=== PATIENT | male | born 1990 | race Caucasian/White ===

== ENCOUNTER 2017-07-02 23:14 | Emergency (ER) | payer MEDICAID ==
[~2017-07-02] VITALS: Ht 170.2 cm; Wt 65.1 kg
[2017-07-02 23:21] VITALS: BP 121/82
== END 2017-07-03 00:57 | disposition home or self-care (01) ==
LOC: ED 07-03 00:42
DX: J18.1 Lobar pneumonia, unspecified organism (principal)
CPT/HCPCS: 71020; 99284

== ENCOUNTER 2019-10-23 01:35 | Emergency (ER) | payer MEDICAID ==
[~2019-10-23] VITALS: Ht 170.2 cm; Wt 59.0 kg
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
--- NOTE | 2019-10-23 01:40 | NUR ---
C-COLLAR IN PLACE, APPLIED BY [facility]
--- NOTE | 2019-10-23 01:50 | NUR ---
PATIENT TO CT
[2019-10-23] MEDS ORDERED: ONDANSETRON ODT 4 MG ONE (01:56)
[2019-10-23] MEDS ORDERED: OXYcodone/APAP 5/325MG TABLET ONE (01:57)
[2019-10-23] MEDS ORDERED: IBUPROFEN 600 MG TABLET ONE (01:58)
[2019-10-23] MEDS ORDERED: ONDANSETRON ODT 4 MG PO ONE (02:00)
[2019-10-23] MEDS ORDERED: IBUPROFEN 600 MG TABLET PO ONE (02:00)
[2019-10-23] MEDS ORDERED: OXYcodone/APAP 5/325MG TABLET PO ONE (02:00)
--- NOTE | 2019-10-23 02:04 | NUR ---
PATIENT AND STATES THEY CALLED [facility] AND ALREADY FILED REPORT AND PLAN ON GETTING RESTRIANING ORDER
--- NOTE | 2019-10-23 02:16 | NUR ---
PATIENT MEDICATED PER [facility], TOLERATED WELL. CALL LIGHT IN REACH, DENIES NEEDS AT THIS TIME.
[2019-10-23 02:49] VITALS: BP 113/84
== END 2019-10-23 03:25 | disposition home or self-care (01) ==
LOC: ED 03:10
DX: S06.0X1A Concussion with loss of consciousness of 30 minutes or less, initial encounter (principal); S16.1XXA Strain of muscle, fascia and tendon at neck level, initial encounter; S09.90XA Unspecified injury of head, initial encounter; F17.200 Nicotine dependence, unspecified, uncomplicated; Y04.8XXA Assault by other bodily force, initial encounter; Y93.89 Activity, other specified; Y92.009 Unspecified place in unspecified non-institutional (private) residence as the place of occurrence of the external cause; Y99.8 Other external cause status
CPT/HCPCS: 70450; 72125; 99284; Q0162

== ENCOUNTER 2020-03-06 19:16 | Emergency (ER) | payer MEDICAID ==
[~2020-03-06] VITALS: Ht 170.2 cm; Wt 63.7 kg
[2020-03-06] MEDS ORDERED: ONDANSETRON 2MG/ML, 2ML ONE (20:11)
[2020-03-06] MEDS ORDERED: MAALOX/HYOSCYAMINE/LIDOCAINE 45 ML BTL ONE (20:11)
[2020-03-06] MEDS ORDERED: FAMOTIDINE 20 MG/2 ML ONE (20:11)
[2020-03-06 20:19] VITALS: BP 120/81
[2020-03-06 20:27] LABS: BASOPHILS # (AUTO) 0.04 x10^3/uL (0-0.1); BASOPHILS % (AUTO) 0 % (0-1); EOSINOPHILS # (AUTO) 0.03 x10^3/uL (0-0.4); EOSINOPHILS % (AUTO) 0 % (1-7); LYMPHOCYTES # (AUTO) 1.34 x10^3/uL (1-3.4); LYMPHOCYTES % (AUTO) 13 % (22-44); MD NO; MEAN CORPUSCULAR HEMOGLOBIN 31.6 pg (27.5-34.5); MONOCYTES # (AUTO) 0.58 x10^3/uL (0.2-0.8); MONOCYTES % (AUTO) 6 % (2-9); NEUTROPHILS # (AUTO) 8.01 x10^3/uL (1.8-6.8); NEUTROPHILS % (AUTO) 80 % (42-75); PLATELET COUNT 202 x10^3/uL (130-400); RED BLOOD COUNT 5.15 x10^6/uL (4.38-5.82); RED CELL DISTRIBUTION WIDTH 13.9 % (9.4-14.8)
[2020-03-06] MEDS ORDERED: ONDANSETRON 2MG/ML, 2ML IVPush ONE (20:30)
[2020-03-06] MEDS ORDERED: MAALOX/HYOSCYAMINE/LIDOCAINE 45 ML BTL PO ONE (20:30)
[2020-03-06] MEDS ORDERED: FAMOTIDINE 20 MG/2 ML IV ONE (20:30)
[2020-03-06] MEDS ORDERED: SODIUM CHLORIDE 0.9% 1,000ML IVBOLUS ONE (20:30)
[2020-03-06] MEDS ORDERED: SODIUM CHLORIDE FLUSH 10ML SYR IVF ONE (20:30)
[2020-03-06 20:32] LABS: ALANINE AMINOTRANSFERASE 22 U/L (12-78); ALBUMIN 4.4 g/dL (3.4-5.0); ANION GAP 5 mmol/L (5-15); CALCIUM 9.2 mg/dL (8.5-10.1); CHLORIDE 107 mmol/L (98-107); CREATININE 1.11 mg/dL (0.7-1.3)
[2020-03-06 20:34] LABS: ALKALINE PHOSPHATASE 88 U/L (45-117); TOTAL PROTEIN 8.2 g/dL (6.4-8.2)
--- NOTE | 2020-03-06 20:54 | NUR ---
PT REPORTS HE FEELS "A LITTLE BIT BETTER" PT PASSED PO CHALLENGE. TBDC
--- NOTE | 2020-03-06 21:06 | NUR ---
PT WITH NO EPISODES OF VOMITTING IN THE ED
== END 2020-03-06 21:08 | disposition home or self-care (01) ==
LOC: ED 19:33
DX: R11.2 Nausea with vomiting, unspecified (principal); R10.84 Generalized abdominal pain; I51.7 Cardiomegaly
CPT/HCPCS: 36415; 74021; 80053; 83690; 85025; 93005; 96374; 96375; 99285; J2405; J3490; J7030

== ENCOUNTER 2020-04-13 01:06 | Emergency (ER) | payer MEDICAID ==
[~2020-04-13] VITALS: Ht 170.2 cm; Wt 60.7 kg
--- NOTE | 2020-04-13 06:19 | NUR ---
PT TO ROOM FROM LOBBY
[2020-04-13] MEDS ORDERED: DIPHENHYDRAMINE 50 MG/ML, 1ML ONE (06:42)
[2020-04-13] MEDS ORDERED: METOCLOPRAMIDE 5 MG/ML, 2ML ONE (06:42)
[2020-04-13] MEDS ORDERED: KETOROLAC 30 MG/1 ML ONE (06:43)
--- NOTE | 2020-04-13 06:54 | NUR ---
PT WITH URIBE, NAUSEA AND SOME VOMITTING X 1 DAY. PIV PLACED, PT MEDICATED AND IVF INITIATED. ATTACHED TO BP AND SPO2 MONITORS.
[2020-04-13] MEDS ORDERED: KETOROLAC 30 MG/1 ML IVPush ONE (07:00)
[2020-04-13] MEDS ORDERED: SODIUM CHLORIDE 0.9% 1,000ML IVBOLUS ONE (07:00)
[2020-04-13] MEDS ORDERED: DIPHENHYDRAMINE 50 MG/ML, 1ML IVPush ONE (07:00)
[2020-04-13] MEDS ORDERED: METOCLOPRAMIDE 5 MG/ML, 2ML IVPush ONE (07:00)
--- NOTE | 2020-04-13 08:26 | NUR ---
TASK RN. PT OK FOR D/C PER E MD. PT VERBALIZED UNDERSTANDING OF D/C INSTRUCTIONS. HAS STEADY GAIT UPON D/C. PT HAS ALL OWN BELONGINGS UPON D/C.
[2020-04-13 08:27] VITALS: BP 100/65
== END 2020-04-13 08:28 | disposition home or self-care (01) ==
LOC: ED 06:21
DX: G44.219 Episodic tension-type headache, not intractable (principal); Z59.0 Homelessness
CPT/HCPCS: 96374; 96375; 99284; J1200; J1885; J2765; J7030

== ENCOUNTER 2020-04-18 19:55 | Emergency (ER) | payer MEDICAID ==
[~2020-04-18] VITALS: Ht 170.2 cm; Wt 61.9 kg
[2020-04-18] MEDS ORDERED: ONDANSETRON ODT 4 MG ONE (20:19)
[2020-04-18] MEDS ORDERED: ONDANSETRON ODT 4 MG PO ONE (20:30)
[2020-04-18 20:37] LABS: BASOPHILS # (AUTO) 0.03 x10^3/uL (0-0.1); BASOPHILS % (AUTO) 1 % (0-1); EOSINOPHILS # (AUTO) 0.09 x10^3/uL (0-0.4); EOSINOPHILS % (AUTO) 2 % (1-7); LYMPHOCYTES # (AUTO) 1.48 x10^3/uL (1-3.4); LYMPHOCYTES % (AUTO) 28 % (22-44); MD NO; MEAN CORPUSCULAR HEMOGLOBIN 31.6 pg (27.5-34.5); MEAN CORPUSCULAR HGB CONC 33.5 g/dL (33.2-36.2); MEAN CORPUSCULAR VOLUME 94.5 fL (81-97); MEAN PLATELET VOLUME 8.5 fL (7.4-10.4); MONOCYTES # (AUTO) 0.27 x10^3/uL (0.2-0.8); MONOCYTES % (AUTO) 5 % (2-9); NEUTROPHILS # (AUTO) 3.53 x10^3/uL (1.8-6.8); NEUTROPHILS % (AUTO) 65 % (42-75); PLATELET COUNT 201 x10^3/uL (130-400); RED BLOOD COUNT 4.48 x10^6/uL (4.38-5.82); RED CELL DISTRIBUTION WIDTH 13.3 % (9.4-14.8)
[2020-04-18 20:49] LABS: CALCIUM 8.4 mg/dL (8.5-10.1); CHLORIDE 109 mmol/L (98-107)
[2020-04-18 21:02] LABS: ANION GAP 5 mmol/L (5-15)
--- NOTE | 2020-04-18 21:09 | NUR ---
REPORT RECEIVED FROM KAREN ELISE. PATIENT UP FOR RECHECK AT THIS TIME
[2020-04-18 21:18] VITALS: BP 108/63
== END 2020-04-18 21:32 | disposition home or self-care (01) ==
LOC: ED 21:15
DX: R11.2 Nausea with vomiting, unspecified (principal); R53.83 Other fatigue; R10.9 Unspecified abdominal pain; F17.200 Nicotine dependence, unspecified, uncomplicated
CPT/HCPCS: 36415; 80048; 85025; 99283; Q0162

== ENCOUNTER 2020-04-21 23:17 | Emergency (ER) | payer MEDICAID ==
[~2020-04-21] VITALS: Ht 170.2 cm; Wt 63.5 kg
--- NOTE | 2020-04-21 23:29 | NUR ---
triage note: EKG done in triage
[2020-04-21] MEDS ORDERED: ONDANSETRON ODT 8 MG ONE (23:55)
[2020-04-21] MEDS ORDERED: ACETAMINOPHEN 500 MG TABLET ONE (23:55)
[2020-04-22] MEDS ORDERED: ACETAMINOPHEN 500 MG TABLET PO ONE
[2020-04-22] MEDS ORDERED: ONDANSETRON ODT 8 MG PO ONE
[2020-04-22 00:47] VITALS: BP 110/72
== END 2020-04-22 00:49 ==
LOC: ED 04-22 00:01
DX: R11.2 Nausea with vomiting, unspecified (principal); I51.7 Cardiomegaly; R94.31 Abnormal electrocardiogram [ECG] [EKG]; R42 Dizziness and giddiness; R51 Headache
CPT/HCPCS: 93005; 99283; Q0162

== ENCOUNTER 2020-05-08 17:17 | Emergency (ER) | payer MEDICAID ==
[~2020-05-08] VITALS: Ht 170.2 cm; Wt 58.8 kg
--- NOTE | 2020-05-08 19:10 | NUR ---
PT ADMITTED TO THOUGHTS OF WANTING TO END HIS LIFE OVER THE PAST COUPLE DAYS. ERP AWARE. PER ERP, OKAY TO DISCHARGE PT WITH REFERRALS FOR MENTAL HEALTH/COMMUNITY RESOURCES. REPORTED TO BRANDYN JONES.
--- NOTE | 2020-05-08 19:16 | NUR ---
report of pt from nick castellanos and assumign care of pt at this time.
--- NOTE | 2020-05-08 19:50 | NUR ---
PT D/C WITH D/C SUMMARY AND SCRIPTS. PT PROVIDED A LIST OF BEHAVIORAL HEALTH RESOURCES PER PT REQUEST. PT DENIES ANY OTHER NEEDS PERTAINING TO THIS VISIT AND AMBULATES TO REGISTRATION DESK WITH STEADY GAIT FOR D/C HOME.
[2020-05-08 19:51] VITALS: BP 118/71
== END 2020-05-08 19:53 | disposition home or self-care (01) ==
LOC: ED 19:32
DX: R10.84 Generalized abdominal pain (principal); R11.2 Nausea with vomiting, unspecified; R05 Cough; R06.02 Shortness of breath; R07.89 Other chest pain
CPT/HCPCS: 71045; 99283

== ENCOUNTER 2020-05-09 20:23 | Emergency (ER) | payer MEDICAID ==
[~2020-05-09] VITALS: Ht 170.2 cm; Wt 59.8 kg
[2020-05-09 20:29] VITALS: BP 117/78
== END 2020-05-09 22:11 | disposition left against medical advice (07) ==
LOC: ED 21:43
DX: R68.89 Other general symptoms and signs (principal); Z53.21 Procedure and treatment not carried out due to patient leaving prior to being seen by health care provider

== ENCOUNTER 2020-05-16 12:51 | Emergency (ER) | payer MEDICAID ==
[~2020-05-16] VITALS: Ht 170.2 cm; Wt 56.1 kg
--- NOTE | 2020-05-16 13:25 | NUR ---
Lab at bedside
[2020-05-16 13:32] LABS: BASOPHILS # (AUTO) 0.05 x10^3/uL (0-0.1); BASOPHILS % (AUTO) 1 % (0-1); EOSINOPHILS # (AUTO) 0.15 x10^3/uL (0-0.4); EOSINOPHILS % (AUTO) 2 % (1-7); LYMPHOCYTES # (AUTO) 2.34 x10^3/uL (1-3.4); LYMPHOCYTES % (AUTO) 36 % (22-44); MD NO; MEAN CORPUSCULAR HEMOGLOBIN 31.6 pg (27.5-34.5); MEAN CORPUSCULAR VOLUME 95.9 fL (81-97); MEAN PLATELET VOLUME 8.8 fL (7.4-10.4); MONOCYTES # (AUTO) 0.77 x10^3/uL (0.2-0.8); MONOCYTES % (AUTO) 12 % (2-9); NEUTROPHILS # (AUTO) 3.25 x10^3/uL (1.8-6.8); NEUTROPHILS % (AUTO) 50 % (42-75); PLATELET COUNT 189 x10^3/uL (130-400); RED BLOOD COUNT 5.15 x10^6/uL (4.38-5.82); RED CELL DISTRIBUTION WIDTH 13.4 % (9.4-14.8)
[2020-05-16 13:45] LABS: ALANINE AMINOTRANSFERASE 18 U/L (12-78); ALBUMIN 4.1 g/dL (3.4-5.0); ANION GAP 7 mmol/L (5-15); CALCIUM 9.1 mg/dL (8.5-10.1); CHLORIDE 105 mmol/L (98-107); CREATININE 1.17 mg/dL (0.7-1.3)
[2020-05-16 13:50] LABS: ALKALINE PHOSPHATASE 78 U/L (45-117); BILIRUBIN,TOTAL 1.9 mg/dL (0.2-1.0); TROPONIN I < 0.015 ng/mL (0.000-0.045)
[2020-05-16 15:20] VITALS: BP 98/71
--- NOTE | 2020-05-16 15:40 | NUR ---
WITH REASSESSMENT PATIENT REPORTS CONTINUED PALPITATIONS VSS ON PATHOLOGY LAB TECHNICIAN PROVIDED WITH PO FLUIDS/SOLIDS
[2020-05-16 16:15] LABS: AMPHETAMINE SCREEN, URINE Positive (Negative); BARBITURATE SCREEN, URINE Negative (Negative); BENZODIAZEPINE SCREEN, URINE Negative (Negative); CANNABINOID SCREEN, URINE Negative (Negative); COCAINE SCREEN, URINE Negative (Negative); METHADONE SCREEN, URINE Negative (Negative); OPIATE SCREEN, URINE Negative (Negative)
--- NOTE | 2020-05-16 16:40 | NUR ---
PLACED UP FOR RECHECK ALL TESTING RESULTED PATIENT NOW DENIES ANY SXS
== END 2020-05-16 18:40 | disposition home or self-care (01) ==
LOC: ED 13:25
DX: F15.10 Other stimulant abuse, uncomplicated (principal); R00.2 Palpitations; R07.89 Other chest pain; I51.7 Cardiomegaly; F17.200 Nicotine dependence, unspecified, uncomplicated
CPT/HCPCS: 36415; 80053; 80307; 84443; 84484; 85025; 93005; 99284

== ENCOUNTER 2020-05-23 14:34 | Emergency (ER) | payer MEDICAID ==
[~2020-05-23] VITALS: Ht 170.2 cm; Wt 61.0 kg
--- NOTE | 2020-05-23 15:52 | NUR ---
SURVEILLANCE INVESTIGATOR: PT WALKED BACK FROM LOBBY TO ROOM AT THIS TIME. NO ACUTE DISTRESS NOTED AT THIS TIME.
--- NOTE | 2020-05-23 16:08 | NUR ---
Assumed care of patient. C/O N/V x 5. NAD. Provided with blanket. No other needs at this time.
[2020-05-23 16:59] LABS: BASOPHILS # (AUTO) 0.02 x10^3/uL (0-0.1); BASOPHILS % (AUTO) 0 % (0-1); EOSINOPHILS # (AUTO) 0.13 x10^3/uL (0-0.4); EOSINOPHILS % (AUTO) 2 % (1-7); LYMPHOCYTES # (AUTO) 1.69 x10^3/uL (1-3.4); LYMPHOCYTES % (AUTO) 26 % (22-44); MD NO; MEAN CORPUSCULAR HEMOGLOBIN 31.6 pg (27.5-34.5); MEAN CORPUSCULAR HGB CONC 33.4 g/dL (33.2-36.2); MEAN CORPUSCULAR VOLUME 94.7 fL (81-97); MEAN PLATELET VOLUME 8.8 fL (7.4-10.4); MONOCYTES # (AUTO) 0.45 x10^3/uL (0.2-0.8); MONOCYTES % (AUTO) 7 % (2-9); NEUTROPHILS # (AUTO) 4.14 x10^3/uL (1.8-6.8); NEUTROPHILS % (AUTO) 64 % (42-75); PLATELET COUNT 176 x10^3/uL (130-400); RED BLOOD COUNT 4.48 x10^6/uL (4.38-5.82); RED CELL DISTRIBUTION WIDTH 13.5 % (9.4-14.8)
[2020-05-23] MEDS ORDERED: SODIUM CHLORIDE 0.9% 1,000ML IVBOLUS ONE (17:00)
[2020-05-23] MEDS ORDERED: ONDANSETRON 2MG/ML, 2ML IVPush ONE (17:00)
[2020-05-23 17:09] LABS: ALANINE AMINOTRANSFERASE 20 U/L (12-78); ALBUMIN 3.6 g/dL (3.4-5.0); CALCIUM 8.6 mg/dL (8.5-10.1); CHLORIDE 111 mmol/L (98-107); CREATININE 1.05 mg/dL (0.7-1.3)
[2020-05-23 17:14] LABS: ALKALINE PHOSPHATASE 59 U/L (45-117); ANION GAP 3 mmol/L (5-15); BILIRUBIN,TOTAL 0.3 mg/dL (0.2-1.0); TOTAL PROTEIN 6.7 g/dL (6.4-8.2)
[2020-05-23] MEDS ORDERED: ONDANSETRON 2MG/ML, 2ML ONE (17:16)
--- NOTE | 2020-05-23 17:17 | NUR ---
IV started, zofran admin, and NS hung. Will continue to monitor.
[2020-05-23 18:02] VITALS: BP 104/61
--- NOTE | 2020-05-23 18:20 | NUR ---
Patient/Caregiver given discharge instructions and they have confirmed that they understand the instructions. Patient ambulatory with steady gait.
== END 2020-05-23 18:21 | disposition home or self-care (01) ==
LOC: ED 18:15
DX: K29.00 Acute gastritis without bleeding (principal); K85.00 Idiopathic acute pancreatitis without necrosis or infection; R11.2 Nausea with vomiting, unspecified
CPT/HCPCS: 36415; 80053; 83690; 85025; 96361; 96374; 99283; J2405; J7030

== ENCOUNTER 2020-05-25 08:57 | Emergency (ER) | payer MEDICAID ==
[~2020-05-25] VITALS: Ht 170.2 cm; Wt 62.5 kg
--- NOTE | 2020-05-25 09:42 | NUR ---
walked back to room gait steady. as
--- NOTE | 2020-05-25 09:49 | NUR ---
pt here c/o abd pain/n/v here thurs for same got zofran, carafate, pepcid rx, no relief. diffuse abd pain on palp, pt calm, gait steady, watching tv w/ gf, no vomiting noted. also sts had episode of "shaking" last night that is a seizure r/t stress, does not take seizure meds. denies etoh/drug use. call camp in reach. vss. as
[2020-05-25] MEDS ORDERED: SODIUM CHLORIDE 0.9% 1,000ML IVBOLUS ONE (10:00)
[2020-05-25] MEDS ORDERED: ONDANSETRON 2MG/ML, 2ML IVPush ONE (10:00)
[2020-05-25] MEDS ORDERED: FAMOTIDINE 20 MG/2 ML IV ONE (10:00)
[2020-05-25] MEDS ORDERED: ONDANSETRON 2MG/ML, 2ML ONE (10:03)
[2020-05-25] MEDS ORDERED: FAMOTIDINE 20 MG/2 ML ONE (10:03)
--- NOTE | 2020-05-25 10:25 | NUR ---
piv est labs sent meds per dec at bedside. no vomiting noted. as
[2020-05-25 10:29] LABS: BASOPHILS # (AUTO) 0.03 x10^3/uL (0-0.1); BASOPHILS % (AUTO) 1 % (0-1); EOSINOPHILS # (AUTO) 0.11 x10^3/uL (0-0.4); EOSINOPHILS % (AUTO) 2 % (1-7); LYMPHOCYTES # (AUTO) 1.52 x10^3/uL (1-3.4); LYMPHOCYTES % (AUTO) 29 % (22-44); MD NO; MEAN CORPUSCULAR HEMOGLOBIN 31.2 pg (27.5-34.5); MEAN CORPUSCULAR HGB CONC 32.5 g/dL (33.2-36.2); MEAN PLATELET VOLUME 8.8 fL (7.4-10.4); MONOCYTES # (AUTO) 0.46 x10^3/uL (0.2-0.8); MONOCYTES % (AUTO) 9 % (2-9); NEUTROPHILS % (AUTO) 60 % (42-75); PLATELET COUNT 166 x10^3/uL (130-400); RED CELL DISTRIBUTION WIDTH 13.9 % (9.4-14.8)
[2020-05-25 10:38] LABS: ALANINE AMINOTRANSFERASE 24 U/L (12-78); ALBUMIN 3.5 g/dL (3.4-5.0); CALCIUM 8.9 mg/dL (8.5-10.1)
[2020-05-25 10:40] LABS: ALKALINE PHOSPHATASE 55 U/L (45-117); BILIRUBIN,TOTAL 0.4 mg/dL (0.2-1.0); TOTAL PROTEIN 6.2 g/dL (6.4-8.2)
[2020-05-25 10:48] LABS: ANION GAP 5 mmol/L (5-15); CHLORIDE 110 mmol/L (98-107)
--- NOTE | 2020-05-25 10:49 | NUR ---
eating snack and watching tv. recheck. as
[2020-05-25 11:18] VITALS: BP 115/71
== END 2020-05-25 11:21 | disposition home or self-care (01) ==
LOC: ED 09:47
DX: K29.00 Acute gastritis without bleeding (principal); R11.2 Nausea with vomiting, unspecified; K85.90 Acute pancreatitis without necrosis or infection, unspecified; R10.13 Epigastric pain; F17.200 Nicotine dependence, unspecified, uncomplicated
CPT/HCPCS: 36415; 80053; 83690; 85025; 96361; 96374; 96375; 99284; J2405; J3490; J7030

== ENCOUNTER 2020-05-29 14:24 | Emergency (ER) | payer MEDICAID ==
[~2020-05-29] VITALS: Ht 170.2 cm; Wt 63.9 kg
[2020-05-29 14:28] VITALS: BP 142/86
--- NOTE | 2020-05-29 15:30 | NUR ---
NO ANSWER WHEN CALLED FROM THE LOBBY.
--- NOTE | 2020-05-29 15:34 | NUR ---
NO ANSWER WHEN CALLED FROM THE LOBBY (second call)
--- NOTE | 2020-05-29 15:59 | NUR ---
NO ANSWER WHEN CALLED FROM THE LOBBY.
== END 2020-05-29 15:53 | disposition left against medical advice (07) ==
LOC: ED 15:53
DX: R10.84 Generalized abdominal pain (principal); R51 Headache; Z53.21 Procedure and treatment not carried out due to patient leaving prior to being seen by health care provider

== ENCOUNTER 2020-06-24 08:58 | Emergency (ER) | payer MEDICAID ==
[~2020-06-24] VITALS: Ht 170.2 cm; Wt 58.7 kg
[2020-06-24 09:30] LABS: BASOPHILS # (AUTO) 0.03 x10^3/uL (0-0.1); BASOPHILS % (AUTO) 0 % (0-1); EOSINOPHILS # (AUTO) 0.05 x10^3/uL (0-0.4); EOSINOPHILS % (AUTO) 1 % (1-7); LYMPHOCYTES # (AUTO) 1.44 x10^3/uL (1-3.4); LYMPHOCYTES % (AUTO) 19 % (22-44); MD NO; MEAN CORPUSCULAR HEMOGLOBIN 31.6 pg (27.5-34.5); MEAN CORPUSCULAR HGB CONC 33.3 g/dL (33.2-36.2); MEAN CORPUSCULAR VOLUME 94.8 fL (81-97); MONOCYTES # (AUTO) 0.82 x10^3/uL (0.2-0.8); MONOCYTES % (AUTO) 11 % (2-9); NEUTROPHILS # (AUTO) 5.22 x10^3/uL (1.8-6.8); NEUTROPHILS % (AUTO) 69 % (42-75); PLATELET COUNT 209 x10^3/uL (130-400); RED CELL DISTRIBUTION WIDTH 13.9 % (9.4-14.8)
[2020-06-24] MEDS ORDERED: ONDANSETRON 2MG/ML, 2ML ONE (09:30)
[2020-06-24] MEDS ORDERED: SODIUM CHLORIDE 0.9% 1,000ML IVBOLUS ONE (09:30)
[2020-06-24] MEDS ORDERED: ONDANSETRON 2MG/ML, 2ML IVPush ONE (09:30)
[2020-06-24] MEDS ORDERED: MAALOX/HYOSCYAMINE/LIDOCAINE 45 ML BTL ONE (09:30)
[2020-06-24 09:40] LABS: ALANINE AMINOTRANSFERASE 15 U/L (12-78); ALBUMIN 3.5 g/dL (3.4-5.0); ANION GAP 5 mmol/L (5-15); CHLORIDE 109 mmol/L (98-107); CREATININE 0.92 mg/dL (0.7-1.3)
[2020-06-24 09:42] LABS: ALKALINE PHOSPHATASE 75 U/L (45-117); BILIRUBIN,TOTAL 0.7 mg/dL (0.2-1.0); TOTAL PROTEIN 7.2 g/dL (6.4-8.2)
[2020-06-24] MEDS: MAALOX/HYOSCYAMINE/LIDOCAINE 45 ML BTL PO ONE ×2 (10:07→10:12)
[2020-06-24 10:11] VITALS: BP 102/70
== END 2020-06-24 11:01 | disposition home or self-care (01) ==
LOC: ED 09:37
DX: K29.00 Acute gastritis without bleeding (principal); R11.2 Nausea with vomiting, unspecified; F17.210 Nicotine dependence, cigarettes, uncomplicated; R51 Headache; R94.31 Abnormal electrocardiogram [ECG] [EKG]
CPT/HCPCS: 36415; 80053; 83690; 85025; 93005; 96361; 96374; 99284; J2405; J7030

== ENCOUNTER 2020-07-09 07:15 | Emergency (ER) | payer MEDICAID ==
[~2020-07-09] VITALS: Ht 170.2 cm; Wt 65.9 kg
--- NOTE | 2020-07-09 07:25 | NUR ---
BIB [facility], PT WITH C/O "NOT FEELING WELL" NOT ABLE TO ELABORATE ON SYMPTOMS, STATES HE MAY HAVE HAD A PANIC ATTACK, NOT SURE, STATES LIVING SITUATION IS "NOT EASY" DENIES HI/SI. BG 70. PT DENIES PAIN, SOB, COUGH, ANY SICK CONTACTS. PER EMS PT STATES FOR THEM HE "JUST DIDNT WANT TO BE HOME" PT TO BP, CONT PULSE OX
[2020-07-09 07:56] LABS: BASOPHILS # (AUTO) 0.02 x10^3/uL (0-0.1); BASOPHILS % (AUTO) 0 % (0-1); EOSINOPHILS # (AUTO) 0.09 x10^3/uL (0-0.4); EOSINOPHILS % (AUTO) 1 % (1-7); LYMPHOCYTES # (AUTO) 1.97 x10^3/uL (1-3.4); LYMPHOCYTES % (AUTO) 29 % (22-44); MD NO; MEAN CORPUSCULAR HEMOGLOBIN 31.6 pg (27.5-34.5); MEAN CORPUSCULAR VOLUME 95.8 fL (81-97); MEAN PLATELET VOLUME 8.3 fL (7.4-10.4); MONOCYTES # (AUTO) 0.52 x10^3/uL (0.2-0.8); MONOCYTES % (AUTO) 8 % (2-9); NEUTROPHILS # (AUTO) 4.08 x10^3/uL (1.8-6.8); NEUTROPHILS % (AUTO) 61 % (42-75); PLATELET COUNT 191 x10^3/uL (130-400); RED BLOOD COUNT 4.98 x10^6/uL (4.38-5.82); RED CELL DISTRIBUTION WIDTH 13.9 % (9.4-14.8)
[2020-07-09 08:05] LABS: ALBUMIN 3.6 g/dL (3.4-5.0); ANION GAP 6 mmol/L (5-15); CHLORIDE 107 mmol/L (98-107)
[2020-07-09 08:09] LABS: ALANINE AMINOTRANSFERASE 38 U/L (12-78); ALKALINE PHOSPHATASE 58 U/L (45-117); BILIRUBIN,TOTAL 0.6 mg/dL (0.2-1.0); CALCIUM 8.7 mg/dL (8.5-10.1); CREATININE 0.85 mg/dL (0.7-1.3); TOTAL PROTEIN 7.2 g/dL (6.4-8.2)
--- NOTE | 2020-07-09 08:54 | NUR ---
UA COLLECTED AND SENT TO LAB
--- NOTE | 2020-07-09 09:23 | NUR ---
report taken from KAREN Correa, pt resting on gurney, awake, alert, resps even and unlabored. awaiting urine results and dispo at this time.
[2020-07-09 09:27] LABS: MICROSCOPIC INDICATED
[2020-07-09 10:40] VITALS: BP 123/72
--- NOTE | 2020-07-09 10:42 | NUR ---
PT GIVEN DC INSTRUCTIONS AND SCRIPT, PIV DC'D WITH TIP INTACT. PT A&O, RESPS EVEN AND UNLABORED, NO COMPLAINT AT DC. PT AMBULATORY TO DC DESK WITH STEADY GAIT.
== END 2020-07-09 10:43 | disposition home or self-care (01) ==
LOC: ED 07:21
DX: R53.1 Weakness (principal); R51 Headache
CPT/HCPCS: 36415; 80053; 81001; 85025; 87086; 99283

== ENCOUNTER 2020-08-07 00:43 | Emergency (ER) | payer MEDICAID ==
[~2020-08-07] VITALS: Ht 170.2 cm; Wt 64.4 kg
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
--- NOTE | 2020-08-07 01:27 | NUR ---
Pt requests that this RN call to provide update on pt condition/POC. Multiple attempts made to at without an answer. Pt aware Addendum: 08/07/20 at 0649 by ADAM Correct phone number for , mistake made by this RN
--- NOTE | 2020-08-07 02:22 | NUR ---
Resting comfortably. Visible chest rise/fall noted. No s/sx acute distress. Safety watch remains in place
[2020-08-07] MEDS ORDERED: ONDANSETRON 2MG/ML, 2ML IVPush ONE (02:30)
[2020-08-07] MEDS ORDERED: SODIUM CHLORIDE 0.9% 1,000ML IVBOLUS ONE (02:30)
[2020-08-07] MEDS ORDERED: SODIUM CHLORIDE FLUSH 10ML SYR IVF ONE (02:30)
[2020-08-07] MEDS ORDERED: ONDANSETRON 2MG/ML, 2ML ONE (02:32)
[2020-08-07 02:33] LABS: BASOPHILS % (AUTO) 1 % (0-1); EOSINOPHILS % (AUTO) 2 % (1-7); LYMPHOCYTES % (AUTO) 25 % (22-44); MEAN CORPUSCULAR HEMOGLOBIN 31.9 pg (27.5-34.5); MEAN CORPUSCULAR HGB CONC 33.9 g/dL (33.2-36.2); MEAN PLATELET VOLUME 8.5 fL (7.4-10.4); MONOCYTES % (AUTO) 8 % (2-9); NEUTROPHILS % (AUTO) 65 % (42-75); PLATELET COUNT 195 x10^3/uL (130-400); RED BLOOD COUNT 4.95 x10^6/uL (4.38-5.82); RED CELL DISTRIBUTION WIDTH 14.2 % (9.4-14.8)
[2020-08-07 02:38] LABS: MD NO
[2020-08-07 02:44] LABS: ALANINE AMINOTRANSFERASE 32 U/L (12-78); ALBUMIN 4.1 g/dL (3.4-5.0); ANION GAP 4 mmol/L (5-15); CALCIUM 9.2 mg/dL (8.5-10.1); CHLORIDE 108 mmol/L (98-107); CREATININE 0.88 mg/dL (0.7-1.3)
[2020-08-07 02:46] LABS: ALKALINE PHOSPHATASE 67 U/L (45-117); BILIRUBIN,TOTAL 1.4 mg/dL (0.2-1.0); SALICYLATE LEVEL < 1.7 mg/dL (2.8-20.0); TOTAL PROTEIN 7.6 g/dL (6.4-8.2)
--- NOTE | 2020-08-07 03:01 | NUR ---
Provided pt with saltines. States decreased nausea. Instructed to take small bites/sips
[2020-08-07 03:10] LABS: AMPHETAMINE SCREEN, URINE Positive (Negative); BARBITURATE SCREEN, URINE Negative (Negative); BENZODIAZEPINE SCREEN, URINE Negative (Negative); CANNABINOID SCREEN, URINE Negative (Negative); COCAINE SCREEN, URINE Negative (Negative); METHADONE SCREEN, URINE Negative (Negative); OPIATE SCREEN, URINE Negative (Negative)
--- NOTE | 2020-08-07 04:37 | NUR ---
Resting comfortably. No s/sx acute distress. Sitter remains within immediate vicinity of pt
[2020-08-07 06:19] VITALS: BP 127/79
--- NOTE | 2020-08-07 06:22 | NUR ---
Pt continues to express concern r/t this RN not being able to reach . Additional phone call attempts made to at . Voicemail left per pt request. Pt denies pain at this time, states, "I'm just feeling even more anxious because I can't reach her and I was already really anxious before this." Safety watch remains in place
--- NOTE | 2020-08-07 07:10 | NUR ---
REPORT RECEIVED FROM NOC RN, PT RESTING ON HOSPITAL BED AT THIS TIME, MEAL TRAY ORDERED, PT CALLED THIS RN TO RM, CONCERNED IF HAS RETURNED CALL. NO CALL RETURNED AT THIS TIME, PT UPDATED.
--- NOTE | 2020-08-07 09:17 | NUR ---
PT REQUESTING AGAIN TO CALL , ATTEMPTED TO CALL AGAIN, MESSAGE LEFT
--- NOTE | 2020-08-07 11:35 | NUR ---
FOLLOW UP SPECIALIST IN TO INTERVIEW PT
--- NOTE | 2020-08-07 12:02 | NUR ---
PT TO BE VOLUNTARY ADMIT TO [facility], TP RN MADE AWARE. WAITING TO HEAR IF THEY WILL ACCEPT
--- NOTE | 2020-08-07 12:07 | NUR ---
MEAL TRAY PROVIDED, NO OTHER NEEDS AT THIS TIME
--- NOTE | 2020-08-07 12:28 | NUR ---
THROUGHPUT RN: PT DENIED BY [facility]
--- NOTE | 2020-08-07 13:19 | NUR ---
THROUGHPUT RN: PT DENIED BY [facility]
== END 2020-08-07 13:52 | disposition home or self-care (01) ==
LOC: ED 04:10
DX: F32.1 Major depressive disorder, single episode, moderate (principal); R45.851 Suicidal ideations; R11.2 Nausea with vomiting, unspecified; R51.9 Headache, unspecified; G40.909 Epilepsy, unspecified, not intractable, without status epilepticus; F17.200 Nicotine dependence, unspecified, uncomplicated
CPT/HCPCS: 36415; 80053; 80307; 85025; 96361; 96374; 99284; J2405; J7030

== ENCOUNTER 2020-08-25 20:17 | Emergency (ER) | payer MEDICAID ==
[~2020-08-25] VITALS: Ht 170.2 cm; Wt 67.2 kg
--- NOTE | 2020-08-25 20:29 | NUR ---
ERP AT NOW.
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
[2020-08-25 22:14] VITALS: BP 111/72
--- NOTE | 2020-08-25 22:15 | NUR ---
D/C INSTRUCTIONS & F/U APPT RV'WD WITH PT, HE VERBALIZES UNDERSTANDING. [facility] REFERRAL LIST PROVIDED TO PT. PT STATES HE WILL CALL HIS (WHO IS CURRENTLY VISITING FAMILY IN [place]) AND DISCUSS WHETHER HE WILL GO BACK TO [facility] RIGHT NOW. PHONE PROVIDED TO PT. CAB VOUCHER PROVIDED.
== END 2020-08-25 22:17 | disposition home or self-care (01) ==
LOC: ED 20:48
DX: G89.11 Acute pain due to trauma (principal); M54.2 Cervicalgia; R10.9 Unspecified abdominal pain; F17.210 Nicotine dependence, cigarettes, uncomplicated; W22.8XXA Striking against or struck by other objects, initial encounter; Y93.89 Activity, other specified; Y92.89 Other specified places as the place of occurrence of the external cause; Y92.009 Unspecified place in unspecified non-institutional (private) residence as the place of occurrence of the external cause; Y99.8 Other external cause status
CPT/HCPCS: 70360; 99283; 99406

== ENCOUNTER 2021-01-11 22:45 | Emergency (ER) | payer MEDICAID ==
[2021-01-11 22:48] VITALS: BP 124/88
[2021-01-11] MEDS ORDERED: KETOROLAC 60 MG/2 ML ONE (23:43)
[2021-01-12] MEDS ORDERED: KETOROLAC 30 MG/1 ML IM ONE
[2021-01-12] MEDS ORDERED: AMOXICILLIN 500 MG CAPSULE PO ONE
--- NOTE | 2021-01-12 00:05 | NUR ---
Patient given discharge instructions and they have confirmed that they understand the instructions. Patient ambulatory with steady gait.
== END 2021-01-12 00:07 | disposition home or self-care (01) ==
LOC: ED 01-12 00:05
DX: S03.2XXA Dislocation of tooth, initial encounter (principal); K08.89 Other specified disorders of teeth and supporting structures; F17.200 Nicotine dependence, unspecified, uncomplicated; X58.XXXA Exposure to other specified factors, initial encounter; Y93.89 Activity, other specified; Y92.89 Other specified places as the place of occurrence of the external cause; Y99.8 Other external cause status
CPT/HCPCS: 96372; 99283; J1885

== ENCOUNTER 2021-02-27 00:27 | Emergency (ER) | payer MEDICAID ==
[~2021-02-27] VITALS: Ht 170.2 cm; Wt 66.0 kg
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
[2021-02-27 01:27] LABS: BASOPHILS % (AUTO) 1 % (0-1); EOSINOPHILS % (AUTO) 2 % (1-7); LYMPHOCYTES % (AUTO) 27 % (22-44); MEAN CORPUSCULAR HEMOGLOBIN 32.6 pg (27.5-34.5); MEAN CORPUSCULAR HGB CONC 34.9 g/dL (33.2-36.2); MONOCYTES % (AUTO) 7 % (2-9); NEUTROPHILS % (AUTO) 63 % (42-75); PLATELET COUNT 158 x10^3/uL (130-400); RED BLOOD COUNT 4.81 x10^6/uL (4.38-5.82); RED CELL DISTRIBUTION WIDTH 13.4 % (9.4-14.8)
[2021-02-27 01:33] LABS: MD NO
[2021-02-27 01:37] LABS: ALANINE AMINOTRANSFERASE 19 U/L (12-78); ALBUMIN 3.7 g/dL (3.4-5.0); ANION GAP 1 mmol/L (5-15); CALCIUM 8.8 mg/dL (8.5-10.1); CHLORIDE 110 mmol/L (98-107); CREATININE 1.06 mg/dL (0.7-1.3)
[2021-02-27 01:39] LABS: ALKALINE PHOSPHATASE 56 U/L (45-117); BILIRUBIN,TOTAL 0.8 mg/dL (0.2-1.0); SALICYLATE LEVEL < 1.7 mg/dL (2.8-20.0); TOTAL PROTEIN 6.8 g/dL (6.4-8.2)
[2021-02-27 02:48] LABS: AMPHETAMINE SCREEN, URINE Negative (Negative); BARBITURATE SCREEN, URINE Negative (Negative); BENZODIAZEPINE SCREEN, URINE Negative (Negative); CANNABINOID SCREEN, URINE Negative (Negative); COCAINE SCREEN, URINE Negative (Negative); METHADONE SCREEN, URINE Negative (Negative); OPIATE SCREEN, URINE Negative (Negative)
--- NOTE | 2021-02-27 03:00 | NUR ---
PT SUPINE ON MIKA SHORT. PT RESTING CALMLY WITH EYES CLOSED. SAFETY PRECAUTIONS IN PLACE. PT DENIES ANY NEEDS AT THIS TIME. AWAITING TELEPSYCH
--- NOTE | 2021-02-27 05:03 | NUR ---
PT SUPINE ON GURNEY, RESTING COMFORTABLY WITH EYES CLOSED. PT DENIES ANY NEEDS AT THIS TIME. AWAITING TELE PSYCH. SAFETY PRECAUTIONS IN PLACE, SITTER IN VIEW. WILL CONTINUE TO MONITOR.
--- NOTE | 2021-02-27 06:02 | NUR ---
PT SUPINE ON GURNEY, RESTING COMFORTABLY WITH EYES CLOSED. PT DENIES ANY NEEDS AT THIS TIME. SAFETY PRECAUTIONS IN PLACE, SITTER IN VIEW. WILL CONTINUE TO MONITOR.
--- NOTE | 2021-02-27 06:33 | NUR ---
TECHNICAL DIFFICULTY WITH TELEPYSCH, UNABLE TO HAVE PT CONVERSE WITH TELE PSYCH STAFF. ERP AWARE. PER ERP, PT TO HAVE EVAL COMPLETED BY [facility] PSYCH DIRECTOR EMPLOYMENT WHEN AVAILABLE. PT AWARE. NO NEEDS AT THIS TIME.
--- NOTE | 2021-02-27 06:46 | NUR ---
BEDSIDE REPORT TO MOR JONES
--- NOTE | 2021-02-27 06:50 | NUR ---
Report from janice rn With assessment Patient denies complaints, denies suicidality. Reports " I just had a rough couple days and needed a break." Room controlled with psychiatric precautions Sitter within direct eyeline
--- NOTE | 2021-02-27 07:20 | NUR ---
[employer], [employer] and [employer] all working on troubleshooting connection problem
--- NOTE | 2021-02-27 08:36 | NUR ---
Provided with breakfast. Updated on estimated poc
--- NOTE | 2021-02-27 09:50 | NUR ---
ROOM REMAINS CONTROLLED WITH PSYCHIATRIC PRECAUTIONS SITTER WITHIN DIRECT EYELINE
--- NOTE | 2021-02-27 10:59 | NUR ---
D/C PLACED BY [facility]ED[facility] DR. JUANITA ROMERO-CERTIFIED LEGAL 1999 PATIENT AGREEABLE
[2021-02-27 11:20] VITALS: BP 132/79
== END 2021-02-27 11:24 | disposition home or self-care (01) ==
LOC: ED 01:23
DX: R45.851 Suicidal ideations (principal); F32.1 Major depressive disorder, single episode, moderate; F17.200 Nicotine dependence, unspecified, uncomplicated
CPT/HCPCS: 36415; 80053; 80299; 80307; 80320; 80329; 85025; 99283; G0480